=== PATIENT | female | born 1990 | race Caucasian/White ===

== ENCOUNTER 2020-06-01 14:57 | Outpatient (REF) | payer MEDICAID, SELFPAY ==
[2020-06-01 21:07] LABS: HGB 13.5 g/dL (12.0-15.5); Mean Corp. HGB Concentration 33.8 g/dL (32.0-36.0); Mean Corpuscular Hemoglobin 31.1 pg (27.0-33.0); Mean Corpuscular Volume 92.2 fL (80-95); Mean Platelet Volume 9.7 fL (8.0-11.0); Platelet Count 289 x1000/uL (130-400); RBC 4.34 m/cumm (4.00-5.20); RBC Distribution Width 12.1 % (11.7-14.6); White Blood Cell Count 7.95 k/cumm (4.4-10.8)
[2020-06-01 21:58] LABS: Ferritin 47 ng/mL (8-252)
== END 2020-06-01 15:17 ==
LOC: NCHCN 14:57
PROVIDERS: PCP Family Medicine; Visit Provider Nurse Practitioner Family
DX: N94.6 Dysmenorrhea, unspecified (principal)
CPT/HCPCS: 85027; 82728

== ENCOUNTER 2021-07-10 17:15 | Outpatient (REF) | payer MEDICAID, SELFPAY ==
--- NOTE | 2021-07-10 13:30 | PAPFT_PTH ---
PATIENT: Deborah Jay [facility] U#:[id number] AGE/SX: 30/F ROOM: RE07/10/[address]: Dominique Al : 1990 BED: DIS: 07/10/2021 SPEC #: [id number] RECD: 07/11/21 12:46 STATUS: MARY REAna #: [id number] PASCALE: 07/10/21 13:[address]: Dominique Al DEPT: [facility] Cytology RECD BY: Sherrill Bustos Tissues: 1 - CX/ENDOCX FOR PAP SMEARS Procedures: PAP THIN PREP/[facility] Screening HPV DNA PROBE Comments: [id number]
[2021-07-10 20:49] LABS: HCT 40.8 % (36.0-46.0); HGB 13.4 g/dL (11.2-15.7); MCH 30.6 pg (27.0-33.0); MCHC 32.8 % (32.0-36.0); MCV 93.2 fL (80-95); MPV 9.8 fL (8.0-11.0); Platelet Count 274 10^3/uL (130-400); RBC 4.38 10^6/uL (3.93-5.22); RDW 11.9 % (11.7-14.6); RDW-SD 40.6 fL
[2021-07-10 20:53] LABS: Ferritin 37 ng/mL (8-252)
== END 2021-07-10 17:16 | disposition home or self-care (01) ==
LOC: NCHCN 17:15
PROVIDERS: PCP Family Medicine; Visit Provider Family Medicine
DX: Z00.00 Encounter for general adult medical examination without abnormal findings (principal); Z12.4 Encounter for screening for malignant neoplasm of cervix; D75.1 Secondary polycythemia; Z11.51 Encounter for screening for human papillomavirus (HPV)
CPT/HCPCS: 85027; 88142; 82728; 87624